=== PATIENT | male | born 1940 | race Caucasian/White ===

== ENCOUNTER → 2021-05-16 08:25 | Outpatient (REF) | payer MEDICARE, SELFPAY ==
--- NOTE | 2021-05-16 08:30 | CA_ITS ---
Transthoracic Echocardiogram Patient (Last, First, Middle): José Miguel Camarena R Gender: Male Date of : 1940 Age: 80 Procedure Date: 05/16/2021 Procedure Type: Transthoracic Echocardiogram Location: OP Height: 187.96 cm Weight: 92.99 kg BSA: 2.20 m2 Heart Rate: bpm BP: 136 / 74 mmHg Mailroom Associate: Referring MD: Jairon Millan MD Symptoms: I10 HTN I51.7 LVH Study Quality: Fair ECG Rhythm: Sinus Conclusions: - The left ventricular systolic function is normal. The visually estimated ejection fraction is between 55-60%. - There is mild septal and mild basal asymmetric hypertrophy. - There is mild calcification of the aortic valve. Findings Left Ventricle Normal left ventricular cavity size. The left ventricular systolic function is normal. The visually estimated ejection fraction is between 55-60%. There is no evidence of regional wall motion abnormalities. E/E prime ratio is between 8 and 15 consistent with indeterminate filling pressures. Evidence suggests grade I (mild) diastolic dysfunction. There is mild septal and mild basal asymmetric hypertrophy. Right Ventricle Normal right ventricular cavity size and systolic function. Atria Both atria are normal in size. Aortic Valve There is a normal trileaflet aortic valve. There is mild calcification of the aortic valve. There is no aortic valve stenosis. The mean gradient is 12 mmHg. There is no aortic valve regurgitation. Mitral Valve The mitral valve appears normal. There is trace mitral valve regurgitation. There is no mitral valve stenosis. Pulmonic Valve The pulmonic valve was not well visualized. Tricuspid Valve Normal tricuspid valve structure. There is trace tricuspid valve regurgitation. The pulmonary artery systolic pressure is normal. Great Vessels The asc aorta is normal in size. Venous The inferior vena cava is normal in size and collapses greater than 50% with inspiration. Pericardium/Pleural There is no evidence of pericardial effusion. Prior Study Comparison No prior study available for comparison. Measurements 2D Linear Measurements RVIDd: 3.82 RVIDd Index: 1.74 IVSd: 1.06 0.6-0.9/0.6-1.0 cm LVIDd: 5.70 3.9-5.3/4.2-5.9 cm LVIDd Index: 2.59 2.4-3.2/2.2-3.1 cm/m2 LVIDs: 4.15 2.0-3.6 cm LVPWd: 1.02 0.7-1.1 cm Ao Root: 3.30 2.1-3.5 cm LA Diam: 5.00 2.7-3.8/3.0-4.0 cm LAIDs Index: 2.27 1.5-2.3 cm/m2 LV Mass: 297.15 67-162/88-224 g LV Mass Index: 135.07 43-95/49-115 g/m2 LVOT Diam: 2.20 3.0+(-)1.3 cm 2D Systolic Function EF 4C: 55.00 >55% EF 2C: 59.20 >55% EF BiP: 54.80 >55% Mitral Valve MV Pk E: 0.81 MV PK A: 0.87 MV Decel Time: 266.00 E/A: 0.90 E'Lateral: 8.27 E'Medial: 5.55 E/E' Med: 14.70 E/E' Lat: 9.80 Aortic Valve AoV Pk Willy: 2.48 AoV Mn Willy: 1.62 AoV VTI: 0.50 AoV Pk Grad: 25.00 Aov Mn Grad: 12.00 KELSEY Cont.VTI: 2.15 LVOT LVOT Pk Willy: 1.33 LVOT Mn Willy: 0.92 LVOT VTI: 0.28 LVOT Pk Grad: 7.00 LVOT Mn Grad: 4.00 LVOT Diam: 2.20 LVOT Area: 3.80 Diastolic Function MV Pk E: 0.81 MV Pk A: 0.87 E/A: 0.90 E'Medial: 5.55 E/E' Med: 14.70 E' Laterial: 8.27 E/E' Lat: 9.80 Tricuspid Valve TR Pk Willy: 2.26 TR Pk Grad: 20.00 RA Press: 3.00 RVSP: 23.00 Great Vessels Aorta Ao Root-2D: 3.30 2.0-3.7 cm Ao Asc: 3.20 2.1-3.4 cm Ao Arch: 3.20 Updated in Other Vendor System with Status of Final Luigi Donato MD electronically signed on 05/17/2021 12:03:50 PM with status of Final
== END ==
LOC: HO.CARD 08:25
PROVIDERS: Visit Provider Internal Medicine Cardiovascular Disease
DX: I11.9 Hypertensive heart disease without heart failure (principal)
CPT/HCPCS: 93306

== ENCOUNTER → 2021-08-29 13:56 | Outpatient (BNVA) | payer MEDICARE, SELFPAY | PROVIDERS: Visit Provider Nurse Practitioner Family | DX: R06.02 Shortness of breath (principal); I11.9 Hypertensive heart disease without heart failure; I47.1 Supraventricular tachycardia | CPT/HCPCS: 99212 ==

== ENCOUNTER → 2021-09-13 07:46 | Outpatient (REF) | payer MEDICARE, SELFPAY ==
--- NOTE | ~2021-09-13 | NM_ITS ---
Myocardial perfusion study Indication: Shortness of breath evaluate for myocardial ischemia Technique: The patient was brought in for a Lexiscan perfusion study on 09/13/2021. Patient performed low-level exercise and was injected 0.4 mg of Lexiscan intravenously. Within a minute of injection, 30 mCi of sestamibi was given intravenously. Images were obtained using the SPECT gamma camera interlaced with the gating device. Images were obtained in supine position. Resting perfusion study was performed on 09/14/2021. Patient was administered 30 mCi of sestamibi intravenously at rest. Images were then obtained in supine position. Images obtained with and without CT attenuation. Total DLP 100 mGy-cm. Images were processed with the software and compared side to side in short axis, horizontal long axis and vertical long axis views. Findings: The stress perfusion study showed nonattenuated images show mildly reduced uptake in the mid inferior and moderately reduced uptake in the inferoapical wall of the LV myocardium. Basal inferior wall uptake with severely reduced. Attenuation corrected images show mildly reduced uptake in the apex of the LV myocardium.. The gated study shows normal LV systolic function with calculated LVEF of 68%. LV cavity is normal in size. The gated study shows normal systolic wall thickening and contraction of segments. Resting study shows nonattenuated images show improved uptake in the mid inferior as well as the inferoapical wall of the LV myocardium. Remainder of the inferior wall uptake but still severely reduced. Images show normal uptake of radiotracer in all segments myocardium. Gating at rest reveals normal systolic wall motion with ejection fraction at greater than 70 %. The findings are consistent with possible mild intensity apical/inferoapical ischemia. NM/NM carlos perf SPECT rest & str Impression: 1. Myocardial perfusion imaging study shows possible small area of mild intensity apical/inferoapical ischemia 2. Gated LVEF is 68% 3. Transient ischemic dilatation not present EKG is nondiagnostic for ischemia
--- NOTE | 2021-09-13 07:51 | CA_ITS ---
Acquisition Time: 2021-09-13 08:03:58 Total Exercise Time: 00:02:00 Test Indications: Dyspnea Medications: BUPROPION GABAPENTIN TRAZADONE CELECOXIB DULOXETINE LOSARTAN METHOTREXATE OMEPRAZOLE Protocol: LEXISCAN Max HR: 099 BPM 71% of Pred: 139 BPM Max BP: 142/070 mmHG Max Work Load: 1.0 METS Pharmacological stress test with Lexiscan injection while sitting and kicking his legs, without anginal symptoms, without arrythmia, with normotensive response to injection, with nondiagnostic EKG for ischemia. Nuclear images pending. Test reviewed with Dr Millan. Referred By: Alise Goodrich Overread By: ALISE GOODRICH
== END ==
LOC: HO.CARD 07:46
PROVIDERS: Visit Provider Nurse Practitioner Family
DX: R06.02 Shortness of breath (principal); R06.00 Dyspnea, unspecified; Z79.899 Other long term (current) drug therapy
CPT/HCPCS: 78452; 93017; A9500; J0280; J2785

== ENCOUNTER 2021-09-20 07:52 | Outpatient (REF) | payer MEDICARE, SELFPAY ==
--- NOTE | 2021-09-20 | PFT_ITS ---
INDICATION: Shortness of breath. SPIROMETRY: The FEV1 to FVC 69% with an FEV1 of 3.45 L, which is 102% predicted and FVC of 4.98 L, which is 106% predicted. No significant response to bronchodilators noted. Maximum voluntary ventilation 110% predicted. LUNG VOLUMES: Total lung capacity 109% predicted with a residual volume of 135% predicted, and expiratory reserve volume of 15% predicted. DIFFUSION CAPACITY: DLCO 49% predicted. COMPARISONS: None. INTERPRETATION: This is an obstructive ventilatory defect consistent with mild COPD. No significant response to bronchodilators noted. Normal maximum voluntary ventilation. Lung volumes significant for air trapping due to the COPD. In addition to significantly decreased expiratory reserve volume secondary to an elevated BMI. In addition to that, the patient has a moderate to severe diffusion impairment, which is likely to some degree due to the underlying COPD and possible emphysema along with other parenchymal lung conditions, also need to consider underlying pulmonary vascular conditions. Clinical correlation warranted. MD ASHUTOSH Hector/ESTHER / [id number]
== END 2021-09-20 07:53 | disposition home or self-care (01) ==
LOC: HO.RESP 07:52
PROVIDERS: PCP Family Medicine; Visit Provider Family Medicine
DX: R06.02 Shortness of breath (principal)
CPT/HCPCS: 94060; 94727; 94729

== ENCOUNTER → 2021-09-25 14:48 | Outpatient (BNVA) | payer MEDICARE, SELFPAY | PROVIDERS: PCP Internal Medicine; Referring Provider Internal Medicine; Visit Provider Nurse Practitioner Family | DX: I11.9 Hypertensive heart disease without heart failure (principal); R06.02 Shortness of breath; I47.1 Supraventricular tachycardia; R94.39 Abnormal result of other cardiovascular function study | CPT/HCPCS: Q3014 ==

== ENCOUNTER → 2022-04-22 08:13 | Outpatient (BNVA) | payer MEDICARE, SELFPAY | PROVIDERS: PCP Family Medicine; Referring Provider Family Medicine; Visit Provider Internal Medicine Cardiovascular Disease | DX: I47.1 Supraventricular tachycardia (principal); I11.9 Hypertensive heart disease without heart failure; R94.39 Abnormal result of other cardiovascular function study | CPT/HCPCS: 93005; 99212 ==

== ENCOUNTER → 2023-05-07 09:02 | Outpatient (BNVA) | payer MEDICARE, SELFPAY | PROVIDERS: PCP Family Medicine; Referring Provider Family Medicine; Visit Provider Internal Medicine Cardiovascular Disease | DX: I47.1 Supraventricular tachycardia (principal); I11.9 Hypertensive heart disease without heart failure; R42 Dizziness and giddiness | CPT/HCPCS: 93005; 99212 ==

== ENCOUNTER 2024-05-11 08:15 | Outpatient (AMB) | payer MEDICARE, SELFPAY ==
[2024-05-11 08:23] VITALS: BP 110/70; PULSE 60; BMI 23.7
--- NOTE | 2024-05-11 08:23 | MHC.OFFVIS ---
Vital Signs 05/11/24 08:23 Height 6 ft 3 in Weight 189 lb 9.561 oz BMI 23.7 BP 110/70 Blood Pressure Location Lt brachial Position Sitting Pulse 60 Intake Visit Reasons: 1 yr f/up Intake Note: 1 year follow-up with ekg heart doing ok Work Over Rig Operator Required: No Project Management Analyst: Project Management Analyst Present Accompanied by: Spouse Allergies adhesive tape [ADHESIVE TAPE] Allergy (Unknown, Verified 09/25/21 14:50) RASH indomethacin [From Indocin] Allergy (Unknown, Verified 09/25/21 14:50) HIVES,FACIAL SWELLING From Indocin Allergy (Unknown, Uncoded 09/25/21 14:50) HIVES,FACIAL SWELLING Medication List - Last Reconciled 05/11/24 by Jairon Millan MD [id number] 200-62.5-25 mcg (Trelegy Ellipta) 1 inh inhalation DAILY folic acid 1 mg PO DAILY gabapentin 600 mg PO TID methotrexate sodium 15 mg PO QWEEK omeprazole 40 mg PO DAILY rivaroxaban (Xarelto) 20 mg PO DAILY rosuvastatin 10 mg PO BEDTIME trazodone 50 mg PO BEDTIME HPI Comments Details: José Miguel comes for follow-up. Again patient was admitted to [facility] last August with a stroke and was given thrombolytics as per Rosanna. Patient subsequently recuperated and subsequently went to [place] where he had a Holter monitor put in. This showed short episodes of atrial fibrillation. He was then started on oral anticoagulation therapy with Xarelto. He has been taking that. He has not had any falls. No bleeding issues or neurologic events. He has not complaining of any symptoms of palpitations. He is currently still having orthostatic lightheadedness and is currently off all antihypertensive therapy. Denies any chest pain. Denies any orthopnea, PND, leg edema. Multiple orthopedic issues, status post spine stimulator in [place] which has improved his back pain. Was recently diagnosed with rheumatoid arthritis. [facility] Medical History (Updated 05/11/24 @ 09:16 by Jairon Millan MD) Paroxysmal atrial fibrillation CVA (cerebral vascular accident) SVT (supraventricular tachycardia) Hypertensive heart disease HTN (hypertension) Rotator cuff arthropathy of right shoulder Surgical History History of hand surgery S/P LASIK surgery of both eyes H/O inguinal hernia repair History of hemorrhoidectomy History of cardiac radiofrequency ablation History of prostatectomy History of back surgery History of hernia repair History of cardiac cath Family History Father Pancreatic cancer Mother CVD (cardiovascular disease) Acute cerebral hemorrhage Social History Alcohol intake: current Patient Tobacco Use Status: Never used Tobacco Review of Systems Const Denies chills, Denies fatigue, Denies fever(s), Denies frequent falls, Denies weakness, Denies weight gain and Denies weight loss ENT Denies dizziness Card Denies chest pain, Denies leg edema, Denies lightheadedness, Denies palpitations, Denies dyspnea, Denies dyspnea on exertion, Denies orthopnea and Denies other (loss of consciousness) Resp Denies cough, Denies dyspnea and Denies dyspnea on exertion GI Denies hematochezia and Denies change in stool character Musc Denies abnormal gait, Denies muscle weakness, Denies numbness, Denies radiating pain into limb and Denies tingling Neuro Denies abnormal gait, Denies dizziness, Denies frequent falls, Denies numbness, Denies tingling and Denies weakness Endo Denies fatigue and Denies palpitations Physical Exam Vital Signs: Last Vital Signs Pulse 60 05/11/24 08:23 BP 110/70 05/11/24 08:23 BMI result Body Mass Index 23.7 Const General: cooperative, comfortable and no acute distress Nutritional Appearance: underweight and other (Frail elderly man) Orientation/consciousness: patient oriented x3 HEENT Head: Yes normal to inspection Neck Neck: Yes normal visual inspection and Yes no JVD Resp Other: He does appear to have increased work of breathing while sitting and noticed to be more short of breath with walking. Auscultation: clear to auscultation bilaterally, no crackles, no rales, no rhonchi and no wheezes Cardio Jugular venous distension: no JVD Rate: regular rate Rhythm: regular rhythm Heart sounds: S1 normal heart sound present, S2 normal heart sound present, no gallops, no murmurs and no rubs Peripheral pulses: Peripheral pulses 2+ throughout GI Inspection: Yes normal to inspection Neuro General: patient oriented x3 Extrem General: Yes normal to inspection, No no pedal edema and No calf tenderness Office Procedures EKG Details: EKG shows normal sinus rhythm with normal EKG [id number], Complete Assessment & Plan Assessment & Plan (1) Orthostatic lightheadedness: Code(s): R42 - Dizziness and giddiness Category: Medical Plan: Patient with continued symptoms of orthostatic lightheadedness. No episodes of syncope. Knows how to manage it. He is currently off all antihypertensive medications. Runs risk for having supine hypertension. Advised to monitor that at home. Continue low-salt diet but advise aggressive oral fluid intake. Orthostatic precautions were discussed again. (2) Paroxysmal atrial fibrillation: Code(s): I48.0 - Paroxysmal atrial fibrillation Category: Medical Plan: Paroxysmal atrial fibrillation with very short episode with stroke last year receiving thrombolytic therapy. Most likely cause for his stroke. Agree with Xarelto therapy. Continue semi annual renal function test monitoring. Advised to call me with any new symptoms. Given his low blood pressure may require therapy with either rhythm control with Multaq or amiodarone and/or digoxin therapy. Discussed with him. Will follow-up for EKG in 6 months and with me in October 2025. He is advised to follow with his home health clinician in [place] as well. Medications: New rivaroxaban (Xarelto) must administer with evening meal 20 mg PO DAILY 30 tabs 1RF Coding Level of Care Code Est Pt Level 4 (30862) Diagnoses Orthostatic lightheadedness R42 Paroxysmal atrial fibrillation I48.0 CPT Codes EKG - CPT: 47552-[id number], Complete ([id number])
== END 2024-05-11 09:16 | disposition home or self-care (01) ==
PROVIDERS: PCP Family Medicine; Visit Provider Internal Medicine Cardiovascular Disease
DX: R42 Dizziness and giddiness (principal); I48.0 Paroxysmal atrial fibrillation
CPT/HCPCS: 93010; 99214

== ENCOUNTER → 2024-05-11 08:15 | Outpatient (BNVA) | payer MEDICARE, SELFPAY | PROVIDERS: PCP Family Medicine; Visit Provider Internal Medicine Cardiovascular Disease | DX: I48.0 Paroxysmal atrial fibrillation (principal); R42 Dizziness and giddiness | CPT/HCPCS: 93005; 99212 ==

== ENCOUNTER → 2024-08-20 12:50 | Outpatient (REF) | payer MEDICARE, SELFPAY ==
--- NOTE | 2024-08-20 12:54 | HM_ITS ---
Conclusion: 1. Patient was monitored for total period of 6 days and 15 hours 2. Baseline was normal sinus rhythm with average heart of 70 beats per minute 3. Frequent sinus bradycardia noted with 40.5% of time heart rate below 60 beats per minute without any significant pauses 4. Rare PACs noted without any sustained arrhythmias 5. No patient reported symptoms MTDD
--- NOTE | 2024-08-20 12:54 | CA_ITS ---
Transthoracic Echocardiogram Patient (Last, First, Middle): José Miguel Camarena R Gender: Male Date of : 1940 Age: 84 Procedure Date: 08/20/2024 Procedure Type: Transthoracic Echocardiogram Location: OP Height: 187.96 cm Weight: 88.45 kg BSA: 2.15 m2 Heart Rate: 56 bpm BP: 130 / 68 mmHg Furniture Duster: FRANCHESCA Referring MD: Jairon Millan MD Machine Assembler For Puller Over: Jairon Millan MD Symptoms: I47.1 - Supraventricular tachycardia Study Quality: Adequate ECG Rhythm: Bradycardia Conclusions: - 1. Normal LV ejection fraction 65-70% with grade 2 diastolic dysfunction 2. Mildly dilated left atrium 3. Mild calcific aortic and mitral valve changes noted with normal cardiac valvular Dopplers 4. Normal RV systolic pressure 5. Upper limits of normal ascending aortic size 6. No gross pericardial effusion Findings Left Ventricle Normal left ventricular size, thickness, and systolic function. The visually estimated ejection fraction is between 65-70%. Spectral Doppler is indicative of a pseudonormal filling pattern. E/E prime ratio is >15, consistent with elevated filling pressures. Evidence suggests grade II (moderate) diastolic dysfunction. Right Ventricle Normal right ventricular cavity size and systolic function. Atria The left atrium is mildly dilated. There is lipomatous hypertrophy of the interatrial septum. There is no evidence of interatrial shunt. The right atrium is normal in size. Aortic Valve There is mild calcification of the aortic valve. There is no aortic valve stenosis. There is no aortic valve regurgitation. Mitral Valve There is mild anterior and posterior mitral leaflet thickening. There is mild mitral annular calcification. There is trace mitral valve regurgitation. There is no mitral valve stenosis. Pulmonic Valve The pulmonic valve is likely normal. Tricuspid Valve Normal tricuspid valve structure. There is trace tricuspid valve regurgitation. The right ventricular systolic pressure is normal. The right ventricular systolic pressure is 18 mmHg. Normal right atrial pressure. There is no evidence of pulmonary hypertension. Great Vessels The pulmonary artery was not well visualized. There is no dilatation of the ascending aorta measuring 3.60 cm. Small plaque is seen in the sino tubular ridge. Venous The inferior vena cava is normal in size and collapses greater than 50% with inspiration. Pericardium/Pleural There is no evidence of pericardial effusion. Prior Study Comparison No significant change compared to prior study dated: 05/16/2021. Measurements 2D Linear Measurements IVSd: 1.09 0.6-0.9/0.6-1.0 cm LVIDd: 4.87 3.9-5.3/4.2-5.9 cm LVIDd Index: 2.27 2.4-3.2/2.2-3.1 cm/m2 LVIDs: 3.38 2.0-3.6 cm LVPWd: 0.93 0.7-1.1 cm LA Diam: 4.30 2.7-3.8/3.0-4.0 cm LAIDs Index: 2.00 1.5-2.3 cm/m2 LV Mass: 220.34 67-162/88-224 g LV Mass Index: 102.48 43-95/49-115 g/m2 LVOT Diam: 2.60 3.0+(-)1.3 cm 2D Systolic Function EF 4C: 61.10 >55% EF 2C: 71.40 >55% EF BiP: 65.60 >55% Mitral Valve MV Pk E: 1.06 MV PK A: 0.89 MV Decel Time: 273.00 E/A: 1.20 E'Lateral: 4.57 E'Medial: 6.53 E/E' Med: 16.20 E/E' Lat: 23.20 PHT: 80.00 MVA PHT: 2.75 Decel [place]: 3.87 Aortic Valve AoV Pk Willy: 1.77 AoV Mn Willy: 1.19 AoV VTI: 0.39 AoV Pk Grad: 13.00 Aov Mn Grad: 6.00 KELSEY Cont.VTI: 3.29 LVOT LVOT Pk Willy: 1.00 LVOT Mn Willy: 0.70 LVOT VTI: 0.24 LVOT Pk Grad: 4.00 LVOT Mn Grad: 2.00 LVOT Diam: 2.60 LVOT Area: 5.31 Diastolic Function MV Pk E: 1.06 MV Pk A: 0.89 E/A: 1.20 E'Medial: 6.53 E/E' Med: 16.20 E' Laterial: 4.57 E/E' Lat: 23.20 Right Ventricle TAPSE (mm): 23.40 TVS' Willy: 17.20 Tricuspid Valve TR Pk Willy: 1.92 TR Pk Grad: 15.00 RA Press: 3.00 RVSP: 18.00 Great Vessels Aorta Sinus of Valsalva: 3.50 2.0-3.5 cm Ao Asc: 3.60 2.1-3.4 cm Pulmonary Veins Pulm Vein S/D 1.20 Pulmonary Valve PV Pk Willy: 1.40 Peak PV Grad: 8.00 Updated in Other Vendor System with Status of Final Jairon Millan MD electronically signed on 08/20/2024 2:57:28 PM with status of Final
== END ==
LOC: HO.CARD 12:50
PROVIDERS: PCP Internal Medicine; Visit Provider Internal Medicine Cardiovascular Disease
DX: I48.0 Paroxysmal atrial fibrillation (principal); I47.10 Supraventricular tachycardia, unspecified; R42 Dizziness and giddiness; I11.9 Hypertensive heart disease without heart failure
CPT/HCPCS: 93242; 93306

== ENCOUNTER → 2024-08-20 12:54 | Outpatient (BNV) | payer MEDICARE, SELFPAY | PROVIDERS: PCP Internal Medicine; Visit Provider Internal Medicine Cardiovascular Disease | DX: I49.1 Atrial premature depolarization (principal) | CPT/HCPCS: 93244; 93306 ==

== ENCOUNTER → 2024-10-12 09:34 | Outpatient (BNVA) | payer MEDICARE, SELFPAY | PROVIDERS: Visit Provider Internal Medicine Cardiovascular Disease ==